=== PATIENT | male | born 1960 | race Caucasian/White ===

== ENCOUNTER 2020-05-23 22:15 | Emergency (ER) | payer MEDICAID ==
[~2020-05-23] VITALS: Ht 167.6 cm; Wt 68.5 kg
[2020-05-23 22:25] VITALS: Ht 167.6 cm; Wt 68.5 kg
[2020-05-23 23:51] VITALS: BP 136/82
== END 2020-05-23 23:51 | disposition home or self-care (01) ==
LOC: ED 22:15
DX: S91.332A Puncture wound without foreign body, left foot, initial encounter (principal); W22.8XXA Striking against or struck by other objects, initial encounter; Y93.89 Activity, other specified; Y92.89 Other specified places as the place of occurrence of the external cause; Y99.8 Other external cause status
CPT/HCPCS: 90715

== ENCOUNTER 2020-05-27 16:52 | Emergency (ER) | payer MEDICAID ==
[~2020-05-27] VITALS: Ht 165.1 cm; Wt 70.3 kg
[2020-05-27 17:00] VITALS: BP 129/77; Ht 165.1 cm; Wt 70.3 kg
== END 2020-05-27 17:41 | disposition home or self-care (01) ==
LOC: ED 16:52
DX: S91.132 Puncture wound without foreign body of left great toe without damage to nail (principal); X58.XXXD Exposure to other specified factors, subsequent encounter

== ENCOUNTER 2020-05-30 16:10 | Emergency (ER) | payer MEDICAID ==
[~2020-05-30] VITALS: Ht 165.1 cm; Wt 68.5 kg
[2020-05-30 16:41] VITALS: Ht 165.1 cm; Wt 68.5 kg
[2020-05-30 17:05] VITALS: BP 139/82
== END 2020-05-30 17:05 | disposition home or self-care (01) ==
LOC: ED 16:10
DX: S91.112D Laceration without foreign body of left great toe without damage to nail, subsequent encounter (principal); W22.8XXD Striking against or struck by other objects, subsequent encounter